=== PATIENT | female | born 1930 | race Hispanic/Latino ===

== ENCOUNTER 2019-07-04 22:08 | Inpatient (IN) | payer MEDICARE ==
[2019-07-04] VITALS (8 sets, daily range): BP systolic 86–131; BP diastolic 32–102
[~2019-07-04] VITALS: Ht 149.9 cm; Wt 58.2 kg
[2019-07-04] MEDS ORDERED: VANCOMYCIN PROTOCOL PER PHARMACY IV PRN (23:45)
[2019-07-04] MEDS ORDERED: ONDANSETRON HCL 4 MG/2 ML VIAL IV PRN (23:45)
[2019-07-04] MEDS ORDERED: DIPHENHYDRAMINE HCL 25 MG CAPSULE PO PRN (23:45)
[2019-07-04] MEDS ORDERED: ACETAMINOPHEN 325 MG TAB PO PRN ×2 (23:45)
[2019-07-04] MEDS ORDERED: NITROGLYCERIN 0.4 MG SL TAB SL PRN (23:45)
[2019-07-04 23:54] LABS: HEMATOCRIT 30.5 % (36-48); MEAN CORPUSCULAR HEMOGLOBIN 24.9 pg (27.0-33.0); MEAN CORPUSCULAR HGB CONC 29.5 g/dL (32.0-36.0); MEAN CORPUSCULAR VOLUME 84.5 fL (79-99); NUCLEATED RED BLOOD CELLS 0.1 % (0.0-0.19); PLATELET COUNT (AUTO) 288 K/uL (130-400); RED BLOOD CELL COUNT(AUTO) 3.61 MIL/uL (4.00-5.50); RED CELL DISTRIBUTION WIDTH 16.9 % (11.0-15.5); WHITE BLOOD COUNT (AUTO) 25.2 K/uL (4.8-10.8)
[2019-07-04 23:55] LABS: APPEARANCE,URINE Turbid (CLEAR); BILIRUBIN,URINE Negative (NEGATIVE); COLOR,URINE Dark Yellow (YELLOW); GLUCOSE, URINE (UA) Negative (NEGATIVE); KETONES,URINE Negative (NEGATIVE); LEUKOCYTE ESTERASE ,URINE Large (NEGATIVE); NITRATE,URINE Negative (NEGATIVE); OCCULT BLOOD,URINE Trace (NEGATIVE); PH,URINE >=9.0 (5.0-8.0); PROTEIN,URINE POS 2+ mg/dL (NEGATIVE)
[2019-07-05] VITALS (27 sets, daily range): BP systolic 91–146; BP diastolic 38–74
[2019-07-05 00:07] LABS: INR 1.18 (0.85-1.15); PARTIAL THROMBOPLASTIN TIME 29.4 SEC (26.3-35.5); PROTHROMBIN TIME 12.7 SEC (9.6-11.6)
[2019-07-05 00:11] LABS: ALBUMIN 1.5 g/dL (3.5-5.0); BILIRUBIN,TOTAL 1.8 mg/dL (0.2-1.0); CREATININE 1.2 mg/dL (0.5-1.5); MAGNESIUM 2.7 mg/dL (1.80-2.40); POTASSIUM 4.1 mmol/L (3.5-5.1); TOTAL PROTEIN, SERUM 6.1 g/dL (6.0-8.3)
[2019-07-05 00:14] LABS: AMORPHOUS SEDIMENT,UR Moderate /LPF (None Seen); BACTERIA,URINE Many /HPF (None Seen); RBC,URINE 0-1 /HPF (0-1); SQUAMOUS EPITHELIAL CELL,UR Few /HPF (0-2); WBC,URINE 26-50 /HPF (0-1)
[2019-07-05 00:15] LABS: TRIPLE PHOSPHATE CRYSTAL,UR Many /LPF (None Seen)
[2019-07-05 00:15] LABS: TROPONIN I 0.06 ng/mL (0.00-0.06)
[2019-07-05 00:25] LABS: CRP QUANTITATIVE 189.6 mg/L (0.00-9.0)
[2019-07-05] MEDS ORDERED: TRAZ-185 PO (00:45)
[2019-07-05] MEDS ORDERED: SPIR25TA6 PEG (00:45)
[2019-07-05] MEDS ORDERED: GLIP5TAB11 PEG (00:45)
[2019-07-05] MEDS ORDERED: LINA5TAB PO (00:45)
[2019-07-05] MEDS ORDERED: PIOG30TA70 PEG (00:45)
[2019-07-05] MEDS ORDERED: ATOR40TA71 PEG (00:45)
[2019-07-05] MEDS ORDERED: FURO40TA5 PO (00:45)
[2019-07-05] MEDS ORDERED: AMLO5TAB4 PO (00:45)
[2019-07-05] MEDS ORDERED: ALPR-410 PEG (00:45)
[2019-07-05] MEDS ORDERED: AMIO200T5 PEG (00:45)
[2019-07-05] MEDS ORDERED: QUET25TA74 PEG (00:45)
[2019-07-05] MEDS ORDERED: TYL3B PEG (00:45)
[2019-07-05] MEDS ORDERED: CARV3.12 PEG (00:45)
[2019-07-05] MEDS ORDERED: CLOP75TA32 PEG (00:45)
[2019-07-05] MEDS ORDERED: IPRATROPIUM/ALBUTEROL SULFATE 3 ML SOLUTION IH ONE (00:48)
[2019-07-05] MEDS ORDERED: SODIUM CHLORIDE 3% FOR INHALATION 4 ML/AMP VIAL.NEB IH ONE ×2 (00:49→09:20)
[2019-07-05 01:02] LABS: BAND NEUTROPHILS % (MANUAL) 21 % (0-2); LYMPHOCYTES % (MANUAL) 7 % (22-44); MAN.DIFF COMMENT-IMPRESSION MANUAL DIFFERENTIAL; MONOCYTES % (MANUAL) 1 % (2-9); PLATELET MORPHOLOGY COMMENT ADEQUATE; SEGMENTED NEUTROPHILS % 71 % (40-70)
[2019-07-05] MEDS ORDERED: AZITHROMYCIN 500MG+NS 250ML 250 ML IV ONE (01:10)
[2019-07-05] MEDS ORDERED: DEXTROSE 50%-WATER 50 ML DISP.SYRIN IV PRN (01:15)
[2019-07-05] MEDS ORDERED: GLUCAGON 1MG KIT 1 MG ML IM PRN (01:15)
[2019-07-05] MEDS: IPRATROPIUM/ALBUTEROL SULFATE 3 ML SOLUTION IH SCH ×6 (02:00→21:53)
--- NOTE | 2019-07-05 02:00 | NUR ---
DR KING NOTIFIED OF CONSULT AND PATIENT STATUS: ON LEVO, NO LACTIC ACID DRAWN AT [facility] BP 75/35 THERE WITH 1.6 L BOLUS IV, CXR SOWED PUL INFILTRATES, HOME MEDS RESUMED BY [facility],FINANCIAL ASSISTANCE SPECIALIST, RECENT LABS REPORTED: LA 1.8, TROPONIN0.06, WBC 25.2 SEGS 71, BANDS 21 BNP 555, UA MANY BACTERIA, CULTURES SENT. PAT IS DNR /DNI , PACED RHYTHM. NEW ORDER TO RESUME AMIODARONE HOME DOSE, CONTINUE LEVO TO KEEP MAP > 65 -WEAN OFF IF ABLE.
[2019-07-05 02:50] LABS: % IRON SATURATION 4.6 % (22-44)
[2019-07-05] MEDS ORDERED: PHENYLEPHRINE HCL 50 MG in SODIUM CHLORIDE 0.9% 250 ML IV PRN (04:45)
[2019-07-05] MEDS ORDERED: ZOSYN 3.375GM+NS 50ML 50 ML IV SCH (05:00)
[2019-07-05] MEDS ORDERED: NOREPINEPHRINE BITARTRATE 1 MG/1 ML ML IV ONE (05:30)
[2019-07-05] MEDS ORDERED: SODIUM CHLORIDE 0.9% 250 ML IV ONE (05:31)
[2019-07-05] MEDS ORDERED: LEVOFLOXACIN 500 MG/D5W 100 ML 100 ML ONE (05:41)
[2019-07-05] MEDS: LEVOFLOXACIN 500 MG/D5W 100 ML 100 ML IV SCH (06:00)
[2019-07-05] MEDS ORDERED: VANCOMYCIN 1.5 GM in SODIUM CHLORIDE 0.9% 250 ML IV SCH (06:00)
[2019-07-05] MEDS ORDERED: METRONIDAZOLE 500MG/100ML BAG 100 ML IV SCH (06:00)
[2019-07-05] MEDS: INSULIN HUMULIN R 100 UNIT/ML 3ML SQ SCH ×3 (06:33→18:00)
[2019-07-05 06:41] LABS: HEMATOCRIT 32.7 % (36-48); MEAN CORPUSCULAR HEMOGLOBIN 24.4 pg (27.0-33.0); MEAN CORPUSCULAR HGB CONC 28.7 g/dL (32.0-36.0); MEAN CORPUSCULAR VOLUME 84.7 fL (79-99); NUCLEATED RED BLOOD CELLS 0.1 % (0.0-0.19); PLATELET COUNT (AUTO) 323 K/uL (130-400); RED BLOOD CELL COUNT(AUTO) 3.86 MIL/uL (4.00-5.50); RED CELL DISTRIBUTION WIDTH 17.3 % (11.0-15.5); WHITE BLOOD COUNT (AUTO) 28.1 K/uL (4.8-10.8)
[2019-07-05 06:56] LABS: ALBUMIN 1.5 g/dL (3.5-5.0); BILIRUBIN,TOTAL 0.4 mg/dL (0.2-1.0); CREATININE 1.1 mg/dL (0.5-1.5); MAGNESIUM 2.7 mg/dL (1.80-2.40); POTASSIUM 4.3 mmol/L (3.5-5.1)
[2019-07-05 07:38] LABS: BAND NEUTROPHILS % (MANUAL) 20 % (0-2); BASOPHILS % (MANUAL) 1 % (0-2); LYMPHOCYTES % (MANUAL) 2 % (22-44); MONOCYTES % (MANUAL) 1 % (2-9); SEGMENTED NEUTROPHILS % 76 % (40-70)
[2019-07-05 07:39] LABS: MAN.DIFF COMMENT-IMPRESSION MANUAL DIFFERENTIAL; PLATELET MORPHOLOGY COMMENT ADEQUATE
[2019-07-05] MEDS: GLIPIZIDE 5 MG TABLET PEG SCH (08:45)
[2019-07-05] MEDS: AMIODARONE HCL 200 MG TABLET PO SCH (08:45)
[2019-07-05] MEDS: CLOPIDOGREL BISULFATE 75 MG TAB PEG SCH (08:45)
[2019-07-05] MEDS: SPIRONOLACTONE 25 MG TAB PEG SCH (08:46)
[2019-07-05] MEDS: PIOGLITAZONE HCL 30 MG TAB PEG SCH (08:46)
[2019-07-05] MEDS: LINAGLIPTIN 5 MG TABLET PO SCH (08:46)
[2019-07-05] MEDS: FAMOTIDINE/PF 20 MG/2 ML VIAL IV SCH (08:47)
[2019-07-05] MEDS: ENOXAPARIN SODIUM 30 MG/0.3 ML SQ SCH (08:48)
[2019-07-05] MEDS ORDERED: FUROSEMIDE 40 MG TABLET PEG SCH (09:00)
[2019-07-05] MEDS ORDERED: NOREPINEPHRINE 4MG/NS 250ML 250 ML IV ONE (12:26)
[2019-07-05] MEDS ORDERED: ACETAMINOPHEN-CODEINE 300/30MG TAB PEG PRN (15:15)
[2019-07-05] MEDS ORDERED: LACTATED RINGERS 1000ML IV SCH (16:15)
[2019-07-05] MEDS: ALPRAZOLAM 0.5 MG TABLET PO PRN ×2 (16:16→17:05)
[2019-07-05] MEDS: FUROSEMIDE 10 MG/ML 2ML VIAL IV SCH (17:06)
--- NOTE | 2019-07-05 19:26 | NUR ---
cm note met with patients son pinky cruz, and states pt has been in and out of hospitals and [facility], confused, he states that they have discussed as a family, and that he and his sister hernando cruz are the primary decisionsmakers there are 12 adult children, and pt has a 91yo spouse at home who is also ill and being cared for, and he is unable to make any decisions. states wishes to stop all treatment for her, but does not want her to be transferred home or to another facility, answered questions he had regarding hospice, per Dash primary nurse has called for orders, and for hospice, informed son and he states he will be here tomorrow morning to speak to social and political studies professor. and discuss any hospice questions. Addendum: 07/05/19 at 1934 by SREE FOUNTAIN CM Amended: Links added.
[2019-07-05] MEDS: QUETIAPINE FUMARATE 25 MG TAB PEG SCH (21:03)
[2019-07-05] MEDS: ATORVASTATIN CALCIUM 40 MG TABLET PEG SCH (21:03)
[2019-07-05] MEDS: TRAZODONE HCL 50 MG TAB PO SCH (21:03)
[2019-07-05] MEDS: NOREPINEPHRINE 4MG/NS 250ML 250 ML IV PRN (22:27)
[2019-07-06] VITALS (69 sets, daily range): BP systolic 87–165; BP diastolic 34–101
[2019-07-06] MEDS ORDERED: AZITHROMYCIN 500MG+NS 250ML 250 ML IV SCH (01:00)
[2019-07-06] MEDS: IPRATROPIUM/ALBUTEROL SULFATE 3 ML SOLUTION IH SCH ×6 (01:23→21:53)
[2019-07-06] MEDS: FUROSEMIDE 10 MG/ML 2ML VIAL IV SCH ×2 (04:06→16:38)
[2019-07-06 05:22] LABS: BASOPHILS % (AUTO) 0.2 % (0.0-5.0); EOSINOPHILS % (AUTO) 0.3 % (0.0-8.0); HEMATOCRIT 31.2 % (36-48); LYMPHOCYTES % (AUTO) 3.5 % (21.0-51.0); MEAN CORPUSCULAR HEMOGLOBIN 24.5 pg (27.0-33.0); MEAN CORPUSCULAR HGB CONC 28.8 g/dL (32.0-36.0); MONOCYTES % (AUTO) 1.7 % (3.0-13.0); NEUTROPHILS % (AUTO) 93.4 % (40.0-77.0); NUCLEATED RED BLOOD CELLS 0.1 % (0.0-0.19); PLATELET COUNT (AUTO) 254 K/uL (130-400); RED BLOOD CELL COUNT(AUTO) 3.67 MIL/uL (4.00-5.50); RED CELL DISTRIBUTION WIDTH 17.1 % (11.0-15.5); WHITE BLOOD COUNT (AUTO) 21.9 K/uL (4.8-10.8)
[2019-07-06] MEDS: VANCOMYCIN 500MG+NS 100ML 100 ML IV SCH ×2 (05:58→09:00)
[2019-07-06] MEDS: INSULIN HUMULIN R 100 UNIT/ML 3ML SQ SCH ×4 (06:00→19:17)
[2019-07-06] MEDS: NOREPINEPHRINE 4MG/NS 250ML 250 ML IV PRN ×4 (08:09→20:36)
[2019-07-06] MEDS: ENOXAPARIN SODIUM 30 MG/0.3 ML SQ SCH (08:16)
[2019-07-06] MEDS: CLOPIDOGREL BISULFATE 75 MG TAB PEG SCH (08:18)
[2019-07-06] MEDS: FAMOTIDINE/PF 20 MG/2 ML VIAL IV SCH (08:18)
[2019-07-06] MEDS: SPIRONOLACTONE 25 MG TAB PEG SCH (08:18)
[2019-07-06] MEDS: AMIODARONE HCL 200 MG TABLET PO SCH (08:18)
[2019-07-06] MEDS: PIOGLITAZONE HCL 30 MG TAB PEG SCH (09:00)
[2019-07-06] MEDS: GLIPIZIDE 5 MG TABLET PEG SCH (09:00)
[2019-07-06] MEDS: LINAGLIPTIN 5 MG TABLET PO SCH (09:00)
--- NOTE | 2019-07-06 09:00 | NUR ---
TRIGGER Pt IS AN 88 Y.O. FEMALE WITH HISTORY OF DYSPHAGIA WITH PEG PLACEMENT. Pt TO CONTINUE NPO AT THIS TIME. DYSPHAGIA EVAL IS NOT RECOMMENDED AT THIS TIME. COUNTY RECORDS MANAGEMENT OFFICER COORDINATED WITH NURSE QUINN. Addendum: 07/06/19 at 1152 by SAMANTHA ROMO, SPT ST Amended: Links added.
--- NOTE | 2019-07-06 11:05 | NUR ---
DR. IVÁN MINOR'S OFFICE WAS CONTACTED AT THIS TIME. NITROGLYCERIN SEPARATOR OPERATOR STATED SHE WILL NOTIFY LINDY EVANS TO CALL ME BACK.
--- NOTE | 2019-07-06 11:06 | NUR ---
ROMARIO Notification - Tube Feeding Pt admitted with Sepsis, Sacral decubitus ulcer. Pt with Peg tube. Hospice in place. TF recommendations placed in Pt chart. TF Recommendations: Initiate Glucerna 1.5 20mls/hr for first 5HRS - Monitor tolerance Increase by 5mL Q5hrs to goal of 45mls/hr to provide Pt nutrition needs of 1620kcal/89gm protein per day Flushes: 120ml Q12hrs Recommend Davy BID for wound healing support. Feeding tube instructions attached to order form Recommend 1000mg Vitamin C Daily secondary to infection and wound healing support. Addendum: 07/06/19 at [address] RD Amended: Links added.
[2019-07-06] MEDS: CEFTAZIDIME PENTAHYDRATE 1 GM/VIAL IVP SCH (13:00)
--- NOTE | 2019-07-06 13:24 | NUR ---
HOSPICE MD order for Hospice. SW met with patient's daughter, Janie Blake, [phone] and son, Pelon Blake, [phone]. List of local hospice agencies provided to family. MANUEL/Choice signed for [facility]. SW notified Kristin Murphy, Certified Juvenile Probation Officer for [facility] of referral. Family is requesting GIP. RESHMA educated on criteria for GIP but informed family that hospice nurse would evaluate for possible GIP. Family in agreement. Family signed MANUEL/Choice for [facility] for placement in case patient does not meet criteria for GIP Hospice. Family states that taking patient home with hospice is not an option due to family already caring for patient's spouse. MANUEL/Choice form placed in chart. Referral sent. Pending eval and acceptance. Patient's nurse, Naye, notified of above information. Family has signed In Hospital Do Not Resuscitate. Daughter as bedside.
--- NOTE | 2019-07-06 13:38 | NUR ---
HOSPICE follow up & Out of Hospital DNR SW was informed by Karen Garza, Admissions Liaison for [facility], that she had met with patient's daughter, Janie Blake, and was informed that daughter wants to talk to Surgeon about surgery needed and risks. As per Karen,daughter stated that if Surgeon states that surgery is too risky - family plans to proceed with hospice and will consider placement at [facility] if patient does not meet criteria for [facility]. Family did sign Out of Hospital Do Not Resuscitate. Form left with patient's nurse,Naye. Pending MD signature. SW will follow up.
[2019-07-06] MEDS ORDERED: SODIUM CHLORIDE 0.9% 1000ML 1,000 ML IV ONE (16:10)
--- NOTE | 2019-07-06 16:17 | NUR ---
[facility] CONSULT PATIENT ASSESSED REQUESTED: PATIENT PRESENTS WITH AN UNSTAGEABLE DECUBITIS TO SACRUM; [facility] RECOMMENDATIONS SUBMITTED. Addendum: 07/06/19 at 1622 by NORMA NASH LVN LVN W Amended: Links added.
--- NOTE | 2019-07-06 17:20 | NUR ---
SURGERY CONSULT ADAM EVANS AT BEDSIDE TO SEE PATIENT. NOTIFIED THAT FAMILY WAS LEANING TOWARD HOSPICE CARE, BUT WANTED SURGERY OPINION IF TO SEE IF SURGERY WILL IMPROVE QUALITY OF LIFE. DAUGHTER, ИРИНА, NOT AT BEDSIDE AT THE MOMENT, AND PA WAS NOTIFIED THAT SHE LEFT HER NUMBER TO BE CONTACTED WHEN HE ARRIVED. LINDY EVANS STATED HE WILL BE BACK TOMORROW TO SPEAK TO DAUGHTER IN PERSON ABOUT PLAN OF CARE.
[2019-07-06] MEDS: ATORVASTATIN CALCIUM 40 MG TABLET PEG SCH (20:19)
[2019-07-06] MEDS: TRAZODONE HCL 50 MG TAB PO SCH (20:19)
[2019-07-06] MEDS: QUETIAPINE FUMARATE 25 MG TAB PEG SCH (20:19)
[2019-07-07] VITALS (70 sets, daily range): BP systolic 82–143; BP diastolic 32–75
[2019-07-07] MEDS: CEFTAZIDIME PENTAHYDRATE 1 GM/VIAL IVP SCH ×2 (01:29→12:11)
[2019-07-07] MEDS: NOREPINEPHRINE 4MG/NS 250ML 250 ML IV PRN ×3 (01:31→10:19)
[2019-07-07] MEDS: IPRATROPIUM/ALBUTEROL SULFATE 3 ML SOLUTION IH SCH ×5 (02:23→23:05)
[2019-07-07 03:38] LABS: BASOPHILS % (AUTO) 0.3 % (0.0-5.0); EOSINOPHILS % (AUTO) 0.2 % (0.0-8.0); HEMATOCRIT 32.4 % (36-48); MEAN CORPUSCULAR HEMOGLOBIN 24.4 pg (27.0-33.0); MEAN CORPUSCULAR HGB CONC 28.4 g/dL (32.0-36.0); MEAN CORPUSCULAR VOLUME 85.9 fL (79-99); MONOCYTES % (AUTO) 2.4 % (3.0-13.0); NEUTROPHILS % (AUTO) 89.9 % (40.0-77.0); NUCLEATED RED BLOOD CELLS 0.3 % (0.0-0.19); PLATELET COUNT (AUTO) 238 K/uL (130-400); RED BLOOD CELL COUNT(AUTO) 3.77 MIL/uL (4.00-5.50); RED CELL DISTRIBUTION WIDTH 17.2 % (11.0-15.5); WHITE BLOOD COUNT (AUTO) 23.4 K/uL (4.8-10.8)
[2019-07-07 04:00] LABS: ALBUMIN 1.2 g/dL (3.5-5.0); BILIRUBIN,TOTAL 0.3 mg/dL (0.2-1.0); CREATININE 1.1 mg/dL (0.5-1.5); TOTAL PROTEIN, SERUM 5.5 g/dL (6.0-8.3)
[2019-07-07 04:04] LABS: POTASSIUM 2.9 mmol/L (3.5-5.1)
[2019-07-07] MEDS: FUROSEMIDE 10 MG/ML 2ML VIAL IV SCH ×2 (05:09→17:30)
[2019-07-07] MEDS: LEVOFLOXACIN 500 MG/D5W 100 ML 100 ML IV SCH (05:09)
[2019-07-07] MEDS: POTASSIUM CHLORIDE 20MEQ/100ML 100 ML IV PRN ×2 (06:15→08:09)
[2019-07-07] MEDS: INSULIN HUMULIN R 100 UNIT/ML 3ML SQ SCH ×5 (06:23→23:49)
[2019-07-07] MEDS: AMIODARONE HCL 200 MG TABLET PO SCH (08:08)
[2019-07-07] MEDS: LINAGLIPTIN 5 MG TABLET PO SCH (08:08)
[2019-07-07] MEDS: ENOXAPARIN SODIUM 30 MG/0.3 ML SQ SCH (08:08)
[2019-07-07] MEDS: GLIPIZIDE 5 MG TABLET PEG SCH (08:08)
[2019-07-07] MEDS: PIOGLITAZONE HCL 30 MG TAB PEG SCH (08:09)
[2019-07-07] MEDS: FAMOTIDINE/PF 20 MG/2 ML VIAL IV SCH (08:09)
[2019-07-07] MEDS: SPIRONOLACTONE 25 MG TAB PEG SCH (08:09)
[2019-07-07] MEDS: CLOPIDOGREL BISULFATE 75 MG TAB PEG SCH (08:09)
[2019-07-07] MEDS: VANCOMYCIN 500MG+NS 100ML 100 ML IV SCH (08:10)
--- NOTE | 2019-07-07 11:45 | NUR ---
SURGERY SIGN OFF LINDY EVANS AT BEDSIDE TO SPEAK WITH PATIENT'S DAUGHTER/POA. HE EXPLAINED THE POSSIBLE OUTCOMES. PATIENT'S DAUGHTER STATED SHE DOES NOT WANT TO AGREE TO SURGERY, AND WANTS TO FOCUS ON COMFORT MEASURES.
--- NOTE | 2019-07-07 13:41 | NUR ---
1069 patient's daughter received BPCI Letter, I notified patient's daughter that PERLA Monreal Coordinator will be following up with patient within 90 days after discharge
[2019-07-07 13:52] LABS: CREATININE 1.1 mg/dL (0.5-1.5); POTASSIUM 3.5 mmol/L (3.5-5.1)
--- NOTE | 2019-07-07 13:59 | NUR ---
HOSPICE Patient's daughter spoke to PA for Surgeon regarding risks for surgery and decided not to go forward with surgery for patient. Daughter stated she wanted to proceed with hospice> Karen Garza was notified. Family still requesting GIP hospice. [facility] nurse, evaluated patient and informed daughter that patient does not meet criteria for inpatient hospice at this time. Plan is for patient to go to half-way with hospice. Ivy did inform daughter that she would re-evaluate patient on 07/08/2019 again. Patient's nurse aware of above information. Peace RUSSO, also made aware. SW will continue to assist as needed.
[2019-07-07] MEDS: MIDODRINE HCL 5 MG TABLET GT SCH ×2 (14:34→20:45)
[2019-07-07] MEDS: MEROPENEM 1 GM VIAL IVP SCH (14:35)
--- NOTE | 2019-07-07 16:29 | NUR ---
[facility] with HOSPICE Patient's information & PSARR faxed to [facility] at family's request. MANUEL/Choice previously completed and in chart. Plan is for patient to go to retirement under [facility]. SW contacted [facility] and spoke to Dacia. She informed SW that facility had beds available. Pending eval and acceptance.
--- NOTE | 2019-07-07 17:32 | NUR ---
Retirement Zina Woods with [facility] met with patient's daughter and informed her that patient's Medicaid does not cover or [place] [facility] care at skilled nursing. Cherrie also informed daughter that there are visitation restrictions at skilled nursing even for end of life patients. Daughter stated that she would speak to the rest of the family and would probably decide to take patient home so the entire family could be around patient. RESHMA notified Karen Garza with [facility] what family is thinking of doing. RESHMA will follow up on 07/08/2019.
--- NOTE | 2019-07-07 19:05 | NUR ---
Received report patient is off Levophed and on Proamatine,patient is DNR and DNI pending Hospice acceptance.Son to bedside.
[2019-07-07] MEDS: ATORVASTATIN CALCIUM 40 MG TABLET PEG SCH (20:45)
[2019-07-07] MEDS: QUETIAPINE FUMARATE 25 MG TAB PEG SCH (20:53)
[2019-07-07] MEDS: TRAZODONE HCL 50 MG TAB PO SCH (20:53)
--- NOTE | 2019-07-07 20:53 | NUR ---
Son refused Desyrel and Seroquel to be given to patient because patient is calm and does not want that she will be drowsy.
[2019-07-08] VITALS (13 sets, daily range): BP systolic 100–126; BP diastolic 42–71
[2019-07-08] MEDS: MEROPENEM 1 GM VIAL IVP SCH ×3 (00:02→13:00)
--- NOTE | 2019-07-08 01:24 | NUR ---
Son refused Antibiotic to be given .
[2019-07-08 04:08] LABS: BASOPHILS % (AUTO) 0.2 % (0.0-5.0); EOSINOPHILS % (AUTO) 0.3 % (0.0-8.0); LYMPHOCYTES % (AUTO) 4.5 % (21.0-51.0); MEAN CORPUSCULAR HEMOGLOBIN 24.1 pg (27.0-33.0); MEAN CORPUSCULAR VOLUME 83.1 fL (79-99); NEUTROPHILS % (AUTO) 90.5 % (40.0-77.0); NUCLEATED RED BLOOD CELLS 0.5 % (0.0-0.19); PLATELET COUNT (AUTO) 147 K/uL (130-400); RED BLOOD CELL COUNT(AUTO) 3.61 MIL/uL (4.00-5.50); RED CELL DISTRIBUTION WIDTH 17.3 % (11.0-15.5); WHITE BLOOD COUNT (AUTO) 15.8 K/uL (4.8-10.8)
[2019-07-08] MEDS: FUROSEMIDE 10 MG/ML 2ML VIAL IV SCH ×2 (04:15→15:27)
[2019-07-08 04:38] LABS: ALBUMIN 1.2 g/dL (3.5-5.0); BILIRUBIN,TOTAL 0.3 mg/dL (0.2-1.0); CREATININE 1.3 mg/dL (0.5-1.5); POTASSIUM 3.6 mmol/L (3.5-5.1); TOTAL PROTEIN, SERUM 5.3 g/dL (6.0-8.3)
[2019-07-08] MEDS: INSULIN HUMULIN R 100 UNIT/ML 3ML SQ SCH ×2 (06:00→12:00)
[2019-07-08] MEDS: IPRATROPIUM/ALBUTEROL SULFATE 3 ML SOLUTION IH SCH (06:17)
[2019-07-08] MEDS: SPIRONOLACTONE 25 MG TAB PEG SCH (09:00)
[2019-07-08] MEDS: ENOXAPARIN SODIUM 30 MG/0.3 ML SQ SCH (09:00)
[2019-07-08] MEDS: FAMOTIDINE/PF 20 MG/2 ML VIAL IV SCH (09:31)
[2019-07-08] MEDS: VANCOMYCIN 500MG+NS 100ML 100 ML IV SCH (09:31)
[2019-07-08] MEDS: MIDODRINE HCL 5 MG TABLET GT SCH ×2 (09:32→13:41)
[2019-07-08] MEDS: AMIODARONE HCL 200 MG TABLET PO SCH (09:32)
[2019-07-08] MEDS: CLOPIDOGREL BISULFATE 75 MG TAB PEG SCH (09:32)
[2019-07-08] MEDS: PIOGLITAZONE HCL 30 MG TAB PEG SCH (09:32)
[2019-07-08] MEDS: GLIPIZIDE 5 MG TABLET PEG SCH (09:32)
[2019-07-08] MEDS: LINAGLIPTIN 5 MG TABLET PO SCH (09:32)
--- NOTE | 2019-07-08 11:29 | NUR ---
DC PLAN [facility] ACCEPTED PATIENT. WAITING FOR FACILITY TO FINISH PROCESSING SINCE IT WOULD BE ASSISTED PLACEMENT. ONCE FAMILY FOUND OUT THAT THERE IS NO VISITORS CHANGED MIND WILL NOW TAKE PATIENT HOME. PENDING FOR EQUIPMENT TO BE DELIVERED. EMS SET UP. OUT OF HOSPITAL DNR SIGNED AND IN CHART. Addendum: 07/08/19 at 1131 by CICI CATHERINE RN CM Amended: Links added.
--- NOTE | 2019-07-08 12:06 | NUR ---
DME & Out of Hospital DNR SW spoke with patient's daughter, Janie and plan is for home due to restrictions at nursing facility. RESHMA contacted Karen Garza, [facility] [employer] Machine Operator Helper regarding family's choice. Karen called RESHMA back and informed that DME has been ordered for patient and will be delivered this afternoon. Pending delivery of DME so patient can be discharged. Patient's nurse, Naye, and CM, Peace Morejon, made aware. Copy of Out of Hospital DNR faxed to [facility]. Copy in chart for ambulance. Original given to patient's daughter.
--- NOTE | 2019-07-08 14:40 | NUR ---
[facility] REPORT GIVEN TO [facility] NURSE AT THIS TIME. CALL BACK NUMBER WAS GIVEN IN CASE OF ANY QUESTIONS.
--- NOTE | 2019-07-08 15:05 | NUR ---
DISCHARGE ORDER MONICA SMITH WAS NOTIFIED THAT PATIENT IS READY TO BE DISCHARGED HOME WITH HOSPICE. PENDING DISCHARGE ORDER. SHE STATED SHE WILL ENTER ORDER INTO THE SYSTEM.
--- NOTE | 2019-07-08 15:20 | NUR ---
RD UPDATE RD notification for Home bolus feedings. Pt has been NPO x 4 days. Continuous tube feeding recommendations placed . Bolus feeding recommendations: 4.5 cans/ 24hrs (8AM-1.5cans, 12PM-1 can, 4PM-1 can, 8PM-1 can) Provides:1602kcal, 88gm Protein, 810ml H2O Flushes: 75mls before and after each feeding (total water:1610mL). Please notify RD as additional nutrition concerns arise. Thank you.
--- NOTE | 2019-07-08 15:40 | NUR ---
EMS TRANSFER EMS NOTIFIED AT THIS TIME THAT PATIENT IS READY TO BE DISCHARGED HOME.
--- NOTE | 2019-07-08 16:30 | NUR ---
DISCHARGE DISCHARGE PAPERWORK WAS DISCUSSED WITH THE DAUGHTER AT BEDSIDE. PATIENT'S DAUGHTER VERBALIZE UNDERSTANDING OF WHAT IS TO COME. IV AND CENTRAL LINE DISCONTINUED. THORPE DISCONTINUED PER DR. Swain EMS HERE TO TRANSFER PATIENT.
--- NOTE | 2019-07-08 16:45 | NUR ---
PATIENT LEFT VIA EMS STRETCH AT THIS TIME WITH DAUGHTER.
== END 2019-07-08 17:15 | disposition hospice, home (50) | DRG 698 ==
LOC: 2CH 22:33
PROVIDERS: ADMIT Hospitalist; ATTEND Hospitalist
DX: T83.511A Infection and inflammatory reaction due to indwelling urethral catheter, initial encounter (principal); A41.9 Sepsis, unspecified organism; R65.21 Severe sepsis with septic shock; E43 Unspecified severe protein-calorie malnutrition; J18.9 Pneumonia, unspecified organism; R53.2 Functional quadriplegia; G93.40 Encephalopathy, unspecified; I69.354 Hemiplegia and hemiparesis following cerebral infarction affecting left non-dominant side; E87.1 Hypo-osmolality and hyponatremia; L03.90 Cellulitis, unspecified; R47.01 Aphasia; I13.0 Hypertensive heart and chronic kidney disease with heart failure and stage 1 through stage 4 chronic kidney disease, or unspecified chronic kidney disease; I13.11 Hypertensive heart and chronic kidney disease without heart failure, with stage 5 chronic kidney disease, or end stage renal disease; Z16.12 Extended spectrum beta lactamase (ESBL) resistance; N17.9 Acute kidney failure, unspecified; L89.150 Pressure ulcer of sacral region, unstageable; B96.20 Unspecified Escherichia coli [E. coli] as the cause of diseases classified elsewhere; D50.9 Iron deficiency anemia, unspecified; E03.9 Hypothyroidism, unspecified; Z66 Do not resuscitate; E11.22 Type 2 diabetes mellitus with diabetic chronic kidney disease; E86.1 Hypovolemia; I08.1 Rheumatic disorders of both mitral and tricuspid valves; I25.10 Atherosclerotic heart disease of native coronary artery without angina pectoris; I27.20 Pulmonary hypertension, unspecified; I50.9 Heart failure, unspecified; N18.3 Chronic kidney disease, stage 3 (moderate); R13.12 Dysphagia, oropharyngeal phase; Y84.6 Urinary catheterization as the cause of abnormal reaction of the patient, or of later complication, without mention of misadventure at the time of the procedure; Z68.25 Body mass index [BMI] 25.0-25.9, adult; Z88.0 Allergy status to penicillin; Z74.01 Bed confinement status; Z93.1 Gastrostomy status; Z95.0 Presence of cardiac pacemaker; Y92.89 Other specified places as the place of occurrence of the external cause; Z82.49 Family history of ischemic heart disease and other diseases of the circulatory system; Z80.9 Family history of malignant neoplasm, unspecified; B96.4 Proteus (mirabilis) (morganii) as the cause of diseases classified elsewhere
CPT/HCPCS: 36415; 71045; 80048; 80053; 80202; 81001; 82550; 82728; 82948; 83540; 83550; 83605; 83735; 83874; 83880; 84145; 84484; 85025; 85610; 85730; 86140; 87040; 87070; 87077; 87088; 87186; 87486; 87581; 87633; 87641; 87798; 93005; 93306; 94640; 94664; G0378; J0456; J0713; J1650; J1815; J1940; J1956; J2185; J2370; J3370; J3480; J3490; J7030